=== PATIENT | female | born 1970 | race African-American/Black ===

== ENCOUNTER 2016-05-27 17:17 | Emergency (ER) | payer BC, OTHER ==
[~2016-05-27] VITALS: Ht 182.9 cm; Wt 129.0 kg
[~2016-05-27 17:17] MED LIST: ASPI81TA45 PO; CEPH500C3 PO; OXYC1SOL5 PO; PANT20 PO
[2016-05-27 17:19] VITALS: BP 154/80; PULSE 91; RESP 18; TEMP 99.6; O2SAT 98
[2016-05-27] MEDS ORDERED: ZANTTAB9 PO (17:37)
[2016-05-27] MEDS ORDERED: OMEP20TA PO (17:37)
[2016-05-27] MEDS ORDERED: ALUMINUM/MAGNESIUM/SIMETH 30 ML CUP PO ONE (17:45)
[2016-05-27] MEDS ORDERED: ONDANSETRON ODT 4 MG TAB PO ONE (17:45)
[2016-05-27] MEDS ORDERED: LIDOCAINE VISCOUS 2% SOLN 15 ML UDC PO ONE (17:45)
--- NOTE | 2016-05-27 17:59 | PD ---
HPI Chief Complaint: GI Complaint Time Seen by Provider: 17:37 Travel History International Travel<30 days: No Contact w/Intl Traveler<30days: No Traveled to known affect area: No History of Present Illness HPI The patient was seen and examined in the presence of the nurse. This patient has chronic dyspepsia. She takes intermittent aaqc-lae-orrdndv acid blockers. She has an an epigastric burning sensation. It is worse after she eats. Is not having chest pain. No presyncopal symptoms. No lower abdominal pains. 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) Endocrine: No Gastrointestinal Disorders: Yes GERD: Yes Genitourinary: No Musculoskeletal: Yes (CHRONIC RIGHT ANKLE WOUND) Neurologic: No Respiratory: No Integumentary: Yes Immunizations Current: Yes Influenza Vaccination: No ?: Not LMP: 05/26/16 Past Surgical History Surgical History: No Previous Surgery Social History Alcohol Use: No Tobacco Use: No Substance Use: No Allergies-Medications (Allergen,Severity, Reaction): Coded Allergies: No Known Allergies (Unverified , 05/27/16) Reported Meds & Prescriptions Reported Meds & Active Scripts Active Reported Zantac 75 (Ranitidine HCl) 75 Mg Tab 75 Mg PO ONCE Take 30 to 60 minutes before eating food or drinking beverages that cause heartburn. Omeprazole 20 Mg Tab 20 Mg PO DAILY Review of Systems General / Constitutional: No: Fever Eyes: No: Visual changes HENT: No: Headaches Cardiovascular: No: Chest Pain or Discomfort Respiratory: No: Shortness of Breath Gastrointestinal: Positive: Other (dyspepsia), No: Abdominal Pain Genitourinary: No: Dysuria Musculoskeletal: No: Pain Skin: No Rash Neurologic: No: Weakness Psychiatric: No: Depression Endocrine: No: Polydipsia Hematologic/Lymphatic: No: Easy Bruising Physical Exam Narrative GENERAL: Well-nourished, well-developed patient in no apparent distress. SKIN: Warm and dry. HEAD: Atraumatic. Normocephalic. EYES: Pupils equal and round. No scleral icterus. No injection or drainage. ENT: No nasal bleeding or discharge. Mucous membranes pink and moist. NECK: Trachea midline. No JVD. CARDIOVASCULAR: Regular rate and rhythm. No murmur appreciated. RESPIRATORY: No accessory muscle use. Clear to auscultation. Breath sounds equal bilaterally. GASTROINTESTINAL: Abdomen soft, non-tender, nondistended. Hepatic and splenic margins not palpable. MUSCULOSKELETAL: No obvious deformities. No clubbing. No cyanosis. No edema. NEUROLOGICAL: Awake and alert. No obvious cranial nerve deficits. Motor grossly within normal limits. Normal speech. PSYCHIATRIC: Appropriate mood and affect; insight and judgment normal. Data Data Last Documented VS Vital Signs Date Time Temp Pulse Resp B/P Pulse Ox O2 Delivery O2 Flow Rate FiO2 05/27/16 18:16 89 16 134/71 100 Room Air 05/27/16 17:19 99.6 Orders Lidocaine 2% Viscous (Xylocaine 2% Visco (05/27/16 17:45) Al-Mag Hy-Si 40-40-4 Mg/Ml Liq (Mag-Al P (05/27/16 17:45) Ondansetron Odt (Zofran Odt) (05/27/16 17:45) Electrocardiogram (05/27/16 ) MDM Medical Decision Making Medical Screen Exam Complete: Yes Emergency Medical Condition: Yes Medical Record Reviewed: Yes Differential Diagnosis Peptic ulcer disease, dyspepsia, esophagitis Narrative Course I have reviewed the patient's electronic medical record. I reviewed her EKG which is normal This clearly is noncardiac symptomatology Abdomen is soft and benign and nontender I gave her a trial of Maalox/lidocaine and a dose of Zofran Upon recheck she feels improved Recommended she use omeprazole daily for 2 weeks, make dietary modifications, and follow up with GI physician Diagnosis Primary Impression: Dyspepsia Additional Instructions: Follow-up with primary care and GI physician Take omeprazole daily for 2 weeks Med/Other Pt SpecificInfo: Other Disposition: 01 DISCHARGE HOME Condition: Stable Andres Welsh MD May 27, 2016 17:59
[2016-05-27 18:16] VITALS: BP 134/71; PULSE 89; RESP 16; O2SAT 100
[2016-05-27 19:25] VITALS: BP 122/78; PULSE 120; RESP 16; O2SAT 98
[2016-05-27 19:40] VITALS: BP 126/72; PULSE 82; RESP 16; O2SAT 97
[2016-05-27 20:00] VITALS: BP 125/80; PULSE 104; RESP 16; O2SAT 98
--- NOTE | 2016-05-28 16:16 | EKG ---
Date Performed: 05/27/2016 Time Performed: 18:05:20 PTAGE: 46 years EKG: Sinus rhythm Compared to prior tracing no significant change Normal ECG PREVIOUS TRACING : 12/06/2012 22.43 DOCTOR: Harvey Alexander Interpretating Date/Time 05/28/2016 16:15:39
[2016-06-03] MEDS ORDERED: RANI150T PO (15:54)
== END 2016-05-27 19:43 | disposition home or self-care (01) ==
LOC: PHED 17:17
DX: R10.13 Epigastric pain (principal)
CPT/HCPCS: 93005

== ENCOUNTER → 2016-06-25 | Outpatient (CLI) | payer OTHER ==
[~2016-06-25] MED LIST changes: -ASPI81TA45 PO; -CEPH500C3 PO; +OMEP20TA PO; -OXYC1SOL5 PO; -PANT20 PO; +RANI150T PO
[2016-06-25 08:46] LABS: AUTOMATED NEUTROPHIL # 2.5 TH/MM3 (1.8-7.7); BASOPHIL # 0.1 TH/MM3 (0-0.2); BASOPHIL % 1.2 % (0.0-2.0); EOSINOPHIL % 0.9 % (0.0-4.0); HEMATOCRIT 35.8 % (35.0-46.0); HEMO FLAGS DIFF FINAL; LYMPH % 41.5 % (9.0-44.0); LYMPHOCYTE # 2.1 TH/MM3 (1.0-4.8); MEAN CELL VOLUME 90.4 FL (80.0-100.0); MEAN CORPUSCULAR HEMOGLOBIN 30.5 PG (27.0-34.0); MEAN CORPUSCULAR HGB CONC 33.7 % (32.0-36.0); MONO % 8.2 % (0.0-8.0); NEUT % 48.2 % (16.0-70.0); PLATELET COUNT 305 TH/MM3 (150-450); RED BLOOD COUNT 3.96 MIL/MM3 (4.00-5.30); RED CELL DISTRIBUTION WIDTH 14.7 % (11.6-17.2); WHITE BLOOD COUNT 5.1 TH/MM3 (4.0-11.0)
[2016-06-25 08:55] LABS: CHLORIDE 105 MEQ/L (98-107); SODIUM (NA) 140 MEQ/L (136-145)
[2016-06-25 10:40] LABS: ALKALINE PHOSPHATASE 100 U/L (45-117); ALT (GPT) 60 U/L (10-53); ANION GAP 5 MEQ/L (5-15); AST (GOT) 24 U/L (15-37); BICARBONATE 30.5 MEQ/L (21.0-32.0); BLOOD UREA NITROGEN 14 MG/DL (7-18); GLOMERULAR FILTRATION RATE 83 ML/MIN (>89); GLUCOSE,FASTING 90 MG/DL (74-99); HDL CHOLESTEROL 39.4 MG/DL (40.0-60.0); LDL CHOLESTEROL 103 MG/DL (0-99); TOTAL BILIRUBIN ADULT 0.4 MG/DL (0.2-1.0)
== END ==
LOC: CLAB 08:22
PROVIDERS: ATTEND Nurse Practitioner Family
DX: K21.9 Gastro-esophageal reflux disease without esophagitis (principal); I73.9 Peripheral vascular disease, unspecified; E66.9 Obesity, unspecified
CPT/HCPCS: 36415; 80053; 80061; 84443; 85025